=== PATIENT | female | born 1995 | race African-American/Black ===

== ENCOUNTER 2022-11-25 00:50 | Day surgery (SDC) | payer OTHER, SELFPAY ==
[2022-11-10 13:09] VITALS: BMI 24.8
--- NOTE | 2022-11-10 13:18 | PC.NURSE ---
Report to the Outpatient Waiting Room, entrance under the green pavilion located off [facility], at time _0630_ on date _[id number]_. Planned Procedure Time: _0830_. Time changes happen often and if your time is changed the preop area will call you the afternoon before. - You and your visitor will be asked to self-screen and do not enter if you have any COVID symptoms. - Only one visitor is requested with a max of two and NO children visitors are allowed at this time. - The patient visitor may be requested to leave or wait in car when not with patient due to distancing restrictions. - A mask is optional within the hospital. Patients may have clear liquids (water, carbonated beverages, clear teas, apple juice) until 3 hours prior to surgery with a maximum of 20 ounces. - No food from midnight until time of surgery Take the following medications with a SIP of water the morning of surgery: __None Medications to discontinue per physician None Date to take last dose Please no make-up, nail central african, hairspray, perfume, deodorant, or body powder the day of surgery. No jewelry (including any body piercings) or valuables the day of surgery, leave them at home. Please take a shower or bath the night before, or the morning of, surgery with an antibacterial soap. Wear comfortable, loose fitting clothing. - Jewelry must be removed prior to entering the operating room. Rings and piercings that are not removed may be cut off. - The hospital will not accept responsibility for valuables. - Please leave all valuables, including medications, at home the day of surgery. If you are going home after surgery, a licensed distribution driver must drive you home. - NO public transportation without another adult if you receive anesthesia. - We recommend that an adult stay with you for 24 hours following discharge. - We also recommend that you do not drive, make important decision, drink alcoholic beverages, or take any drugs that were not prescribed by your health care provider for at least 24 hours after your discharge time. Follow any additional instructions given to you from your surgeon. If you or anyone in your household have experienced Covid symptoms in the past week, please notify your surgeon or the nurse liaison at the phone number below for possible testing. Telephone instructions given to _Patient___and asked if any additional questions and then verbalized understanding. Patient advised to call surgeon office or pre surgery nurse liaison [phone] if any additional questions.
[2022-11-25] VITALS (10 sets, daily range): BP systolic 94–125; BP diastolic 61–75; PULSE 66–108; RESP 12–20; TEMP 36.5–37.3; O2SAT 98–100
[2022-11-25] MEDS: ACETAMINOPHEN 500 MG TABLET 1000 MG PO (06:57)
[2022-11-25] MEDS: LACTATED RINGERS 1,000 ML 30 ML IV CONT ×2 (07:04→09:46)
--- NOTE | 2022-11-25 07:25 | WPDANESEPPF ---
Anes - Initial Pre Proc Eval Procedure: Operation Date: 11/25/22 08:30 Proposed Procedures p Laparoscopic Right Ovarian Cystectomy - Alyssia Boyce MD Date/Time: 11/25/22 07:25 Surgeon: Alyssia Boyce MD Pre Op Diagnosis: cyst right ovary Patient Data Age: 27 Gender: F Height: 1.52 m Weight: 57.85 kg Last Vital Signs Temp 37.3 C 11/25/22 07:14 Pulse 108 H 11/25/22 07:14 Resp 16 11/25/22 07:14 BP 112/69 11/25/22 07:14 Pulse Ox 98 11/25/22 07:14 O2 Del Method Room Air 11/25/22 07:14 Allergies Allergy/AdvReac Type Severity Reaction Status Date / Time No Known Allergies Allergy Verified 11/25/22 06:26 Home Medications Medication Instructions Recorded Confirmed Type albuterol sulfate 90 mcg/actuation 1 inh inhalation BID PRN Dyspnea 11/10/22 11/25/22 History aerosol inhaler ergocalciferol (vitamin D2) 1,250 1,250 mcg PO WEEKLY 11/10/22 11/25/22 History mcg (50,000 unit) capsule famotidine 20 mg tablet 20 mg PO DAILY 11/10/22 11/25/22 History gabapentin 100 mg capsule 100 mg PO HS 11/10/22 11/25/22 History nortriptyline 25 mg capsule 25 mg PO HS 11/10/22 11/25/22 History Patient hx anesthesia problems: none Family hx anesthesia problems: none Results Review: All pre-operative results and documents have been reviewed as part of the pre-operative evaluation. FORMERLY [facility], [facility] Past Medical History Medical History (Updated 11/25/22 @ 07:17 by Kirit Dhillon DO) Asthma Depression GERD (gastroesophageal reflux disease) Social History Social History Smoking status: Never smoker Living arrangements: with family Spiritual care concerns: No Anes - Eval Final PreProcedure Day of Procedure 11/25/22 07:25 Patient weight: normal Heart: regular rate and rhythm Lungs: clear to auscultation and normal air movement Airway: Mallampati scale class II Neurological: alert and oriented Last oral intake: >/= 8 hours ASA classification: II Emergent: no Anesthetic plan: proceed Anesthesia type and monitoring: general ETT and standard monitoring Results Review: All pre-operative results and documents have been reviewed as part of the pre-operative evaluation. Informed Consent: The patient's anesthetic plan and its attendant risks and benefits were discussed with the patient/family/POA. Questions were solicited and answers provided to the satisfaction of the patient/family/POA.
[2022-11-25] MEDS: KETOROLAC 15 MG/ML VIAL (*BKC) IV PUSH (07:56)
--- NOTE | 2022-11-25 08:14 | WPDHPUPDATE1 ---
History and Physical Update Update Date/Time: 11/25/22 08:14 History and Physical has been reviewed, including an updated exam of the patient. There are NO changes in the patient's condition. Risks, benefits, and alternatives have been discussed and questions answered. Patient agrees to proceed with procedure.
--- NOTE | 2022-11-25 09:36 | W.PM.PROC2 ---
Procedure Note - Detailed Date of Procedure 11/25/22 Pre-op Diagnosis cyst right ovary Post-op Diagnosis Same Procedure Performed Laparoscopic right ovarian cystectomy Surgeon Alyssia Boyce MD Anesthesia General Indications Pelvic pain, ovarian cyst Findings right ovarian cyst, 5 cm Description of Procedure The patient was taken to the operating room. She was prepped and draped in the dorsal lithotomy position after induction general anesthesia. A 5 mm incision was made with a scalpel on the abdominal skin in the left upper quadrant of the abdomen. A 5 mm trocar was inserted into the intra-abdominal cavity under direct visualization the scope. In the same fashion a 5 mm left lower quadrant trocar was inserted and a 5 mm infraumbilical trocar was inserted. Cystectomy was performed on the right ovary. The cyst was drained. The cyst was resected with the LigaSure cautery. The cut surface of the ovary was cauterized with unipolar cautery. Cyst capsule with ovarian parenchyma was taken out through the left lower quadrant trocar site . It cut into smaller pieces. The pneumoperitoneum was reduced. The trocars were removed. Skin was closed with subcuticular 4 micro. The patient's incisions were covered with Dermabond. She was taken recovery room in stable condition. Sponge lap and needle counts were correct x2. Complications No immediate complications Condition Stable Disposition Same day
[2022-11-25] MEDS: MIDAZOLAM HCL (*CRX) 2 MG/2 ML VIAL IV PUSH (10:00)
[2022-11-25] MEDS: fentaNYL CITRATE INJ (*CRX) 100 MCG/2 ML VIAL 25 MCG IV PUSH ×3 (10:37→10:49)
[2022-11-25] MEDS: oxyCODONE HCL (*CRX) 5 MG TAB IR PO (11:34)
[2022-11-25] MEDS: ONDANSETRON INJ 4 MG/2 ML VIAL IV PUSH (12:12)
== END 2022-11-25 12:20 | disposition home or self-care (01) ==
PROVIDERS: Visit Provider Obstetrics & Gynecology
PROC: (CPT 49320; principal; 2022-11-25 08:30)
DX: N83.201 Unspecified ovarian cyst, right side (principal); J45.909 Unspecified asthma, uncomplicated; F32.A Depression, unspecified; K21.9 Gastro-esophageal reflux disease without esophagitis; Z79.51 Long term (current) use of inhaled steroids; Z79.899 Other long term (current) drug therapy
CPT/HCPCS: 58662; 88305; A9270; J1100; J1885; J2250; J2370; J2405; J2704; J2710; J3010; J7030; J7120

== ENCOUNTER 2022-12-18 12:38 | Outpatient (CLI) | payer OTHER, SELFPAY ==
--- NOTE | ~2022-12-18 | MMUS_ITS ---
EXAMINATION: MM diagnostic oscar BI w oleg, US breast BI limited HISTORY: Bilateral breast pain, family history of breast cancer in her mother TECHNIQUE: Craniocaudal, mediolateral, and mediolateral oblique 3-D tomosynthesis images of the breas ts were performed and synthetic 2-D images were generated. CAD analysis was submitted and interpreted . High resolution limited bilateral breast ultrasound was performed. COMPARISON: None, baseline BREAST PARENCHYMAL COMPOSITION: The breasts are extremely dense, which lowers the sensitivity of mamm ography. FINDINGS: MAMMOGRAPHIC FINDINGS: No suspicious mass, calcification, or architectural distortion are identified in either breast to sug gest malignancy. No mammographic correlate is identified for the reported pain in either breast. ULTRASOUND: No suspicious cystic or solid mass is identified in either breast to correlate with the patient's crystal ast pain. There is a 5 mm cyst of the right breast near the nipple. IMPRESSION: 1. No specific mammographic or sonographic correlate is identified for the patient's bilateral breast pain. Further evaluation at this time should be based on clinical assessment. Continued follow-up ph ysical examination is recommended. 2. Recommend screening mammography beginning at age 33 given patient's family history of breast cance r in her mother at age 45. BI-RADS Category 2: Benign finding(s). Reviewed, dictated and finalized at location A. IMPRESSION: 1. No specific mammographic or sonographic correlate is identified for the melisa ent's bilateral breast pain. Further evaluation at this time should be based on clinical assessment. Continued follow-up physical examination is recommended. 2. Recommend screening mammography beginning at age 33 given patient's family h istory of breast cancer in her mother at age 45. BI-RADS Category 2: Benign finding(s).
== END 2022-12-18 12:39 | disposition home or self-care (01) ==
PROVIDERS: Visit Provider Nurse Practitioner Obstetrics & Gynecology
DX: N64.4 Mastodynia (principal); Z80.3 Family history of malignant neoplasm of breast
CPT/HCPCS: 76642; 77062; 77066; G0279